=== PATIENT | female | born 1995 | race Caucasian/White ===

== ENCOUNTER 2016-09-20 09:16 | Day surgery (SDC) | payer OTHER ==
[~2016-09-20] VITALS: Ht 167.6 cm; Wt 64.3 kg
[2016-09-20] VITALS (13 sets, daily range): BP systolic 108–126; BP diastolic 63–75; PULSE 66–80; RESP 13–23; Ht 167.6 cm; Wt 64.3 kg
[~2016-09-20 09:16] MED LIST: BACTDS PO; CEFAZOLIN 2 GM/50 ML (PMX) 50 ML IVPB SCH; GLYCOPYRROLATE 0.4 MG INJ ONE; NEOSTIGMINE 3 MG/3 ML SYRINGE ONE; PHEN-537 PO; SOD CHLORIDE 0.9% 1,000 ML IV SCH
[2016-09-20] MEDS ORDERED: DIPHENHYDRAMINE 50 MG INJ IV PRN (10:30)
[2016-09-20] MEDS ORDERED: FENTAnyl 50 MCG/ML VIAL IV PRN ×2 (10:30)
[2016-09-20] MEDS ORDERED: HYDROmorphONE (0.2 MG/ML) 10ML SYG IV PRN ×2 (10:30)
[2016-09-20] MEDS ORDERED: METOCLOPRAMIDE 10 MG INJ IV PRN (10:30)
[2016-09-20] MEDS ORDERED: ONDANSETRON 4 MG INJ IV PRN (10:30)
[2016-09-20] MEDS ORDERED: MEPERIDINE 25 MG INJ IV PRN (10:30)
[2016-09-20] MEDS ORDERED: BUPIVACAINE 0.25% (MPF) 30 ML INJ ONE (11:49)
[2016-09-20] MEDS ORDERED: FENTAnyl 50 MCG/ML VIAL ONE (12:03)
[2016-09-20] MEDS ORDERED: SUCCINYLCHOLINE CHLORIDE 100 MG/5 ML SYG IV ONE (12:17)
[2016-09-20] MEDS ORDERED: PROPOFOL 20 ML ONE (12:17)
[2016-09-20] MEDS ORDERED: ROCURONIUM 50 MG INJ ONE (12:17)
[2016-09-20] MEDS ORDERED: LIDOCAINE 2% (SDV) 5 ML INJ ONE (12:17)
[2016-09-20] MEDS ORDERED: CEFAZOLIN 1 GM INJ ONE (12:17)
--- NOTE | 2016-09-20 12:47 | OPR ---
Date/Time of Note Date/Time of Note DATE: 09/20/16 TIME: 12:44 Operative Report Procedure Date: Sep 20, 2016 Preoperative Diagnosis pilonidal cyst Postoperative Diagnosis same Operation Performed 1. pilonidal cystectomy 13 cm incision and 13 x 4 cm mass 2. localized adjacent tissue transfer with the use of skin flaps with 52 sq cm defect 3. therapeutic injection of subcutaneous marcaine cpt code [id number] Surgeon: Kathy RENDON Specimens pilonidal cyst Indications 21-year-old female with a large pilonidal cyst. She required surgical excision of her pilonidal cyst. Risks alternatives benefits and percent were discussed with patient. Patient expressed understanding and consents to the operation. Procedure Description Patient is taken to the OR and prepped and draped in usual sterile fashion. Surgical timeout was performed IV antibiotics were given. Elliptical incision is made with a 15 blade around the pilonidal cyst. Dissection cautery was carried down all the way to the bone. The pilonidal cyst is resected. Hemostasis is established. Due to the large tissue defect localized adjacent tissue transfer with use of skin flaps was performed. Bilateral flaps were advanced using multilayer closure with interrupted 2-0 Vicryl. Skin is closed with interrupted 2-0 Vicryl and interrupted 2-0 nylon. Therapeutic subcutaneous local anesthesia is injected throughout the whole incision. Dry dressings were applied. Kathy RENDON Sep 20, 2016 12:47
[2016-09-20] MEDS: HYDROmorphONE (0.2 MG/ML) 10ML SYG IV PRN ×3 (12:54→13:07)
[2016-09-20] MEDS ORDERED: HYDROCODONE/APAP (5/325) TAB PO ONE (13:00)
== END 2016-09-20 14:57 | disposition home or self-care (01) ==
LOC: SDS 09:16
PROVIDERS: ATTEND Surgery
DX: L05.91 Pilonidal cyst without abscess (principal)
CPT/HCPCS: 11772; 84703; 88304; J0690; J1170; J2405; J2710; J3010; J7999

== ENCOUNTER 2018-04-18 06:24 | Inpatient (IN) | payer OTHER ==
[2018-04-18] VITALS (22 sets, daily range): BP systolic 105–160; BP diastolic 55–88; PULSE 93–164; RESP 14–24; Ht 167.6 cm; Wt 67.8 kg
[~2018-04-18] VITALS: Ht 167.6 cm; Wt 67.8 kg
[~2018-04-18 06:24] MED LIST changes: -BACTDS PO; +CEFAZOLIN 2 GM/50 ML (PMX) 50 ML IVPB ONE; -CEFAZOLIN 2 GM/50 ML (PMX) 50 ML IVPB SCH; -GLYCOPYRROLATE 0.4 MG INJ ONE; -NEOSTIGMINE 3 MG/3 ML SYRINGE ONE; -PHEN-537 PO
[2018-04-18] MEDS ORDERED: DESFLURANE 15 MIN ONE (07:00)
[2018-04-18] MEDS ORDERED: SUCCINYLCHOLINE CHLORIDE 100 MG/5 ML SYG IV ONE (07:00)
[2018-04-18] MEDS ORDERED: BUPIVACAINE 0.25% (MPF) 30 ML INJ ONE (11:10)
--- NOTE | 2018-04-18 11:21 | PREAC ---
Date/Time of Note Date/Time of Note DATE: 04/18/18 TIME: 11:20 Anesthesia Eval and Record Evaluation Time Pre-Procedure Interview DATE: 04/18/18 TIME: 11:20 Age 23 Sex female NPO: 8 hrs Preoperative diagnosis thyroid noudle CA Planned procedure Thyroidectomy Past Medical History Past Medical History: None Surgery & Anesthesia Issues No known issue Meds Anticoagulation: No Beta Ernesto within 24 hr: No Reason Beta Ernesto not given: Pt. not on B-Ernesto No Active Prescriptions or Reported Meds Current Medications Sodium Chloride 1,000 ml @ 75 mls/hr [id number] IV ; Start 04/18/18 at 06:00; Stop 04/18/18 at 19:19 Meds reviewed: Yes Allergies Coded Allergies: No Known Allergy (Unverified , 09/20/16) Allergies Reviewed: Yes Labs/Studies Labs Reviewed: Reviewed by anesthesiologist Result Diagram: 04/18/18 0630 04/18/18 0630 Laboratory Tests 04/18/18 06:30 test: Negative Studies: ECG (n/a), CXR (n/a) Pre-procedure Exam Last vitals Vital Signs Date Temp Pulse Resp B/P (MAP) Pulse Ox O2 O2 Flow FiO2 Time Delivery Rate 04/18/18 98.2 93 20 105/79 98 Room Air 07:09 (88) Airway: Adequate mouth opening Mallampati: Mallampati I Teeth: Normal Lung: Normal Heart: Normal ASA Physical Status ASA physical status: 1 Emergency: None Planned Anesthetic General/MAC: ETT Planned Pain Management Parenteral pain med Pre-operative Attestations Prior to commencing anesthesia and surgery, the patient was re-evaluated, there was verification of: *The patient's identity *The results of appropriate recent lab work and preoperative vital signs *The above evaluation not changing prior to induction *Anesthetic plan, risk benefits, alternative and complications discussed with patient/family; questions answered; patient/family understands, accepts and wishes to proceed. SUSSY NUNN MD Apr 18, 2018 11:21
[2018-04-18] MEDS ORDERED: hydrALAzine 20 MG INJ IV PRN (11:30)
[2018-04-18] MEDS ORDERED: EPHEDrine SULFATE 50 MG/5 ML SYG IV PRN (11:30)
[2018-04-18] MEDS ORDERED: HYDROmorphONE 1 MG/5 ML IV SYRINGE IV PRN ×2 (11:30)
[2018-04-18] MEDS ORDERED: DIPHENHYDRAMINE 50 MG INJ IV PRN (11:30)
[2018-04-18] MEDS ORDERED: MEPERIDINE 25 MG INJ IV PRN (11:30)
[2018-04-18] MEDS ORDERED: LABETALOL HCL 20MG INJ IV PRN (11:30)
[2018-04-18] MEDS ORDERED: ONDANSETRON 4 MG INJ IV PRN ×2 (11:30→16:30)
[2018-04-18] MEDS ORDERED: METOCLOPRAMIDE 10 MG INJ ONE (11:32)
[2018-04-18] MEDS ORDERED: ROCURONIUM 50 MG INJ ONE (11:32)
[2018-04-18] MEDS ORDERED: MIDAZOLAM 1 MG/ML 2 ML INJ ONE ×2 (11:32→16:36)
[2018-04-18] MEDS ORDERED: CEFAZOLIN 1 GM INJ ONE (11:32)
[2018-04-18] MEDS ORDERED: PROPOFOL 20 ML ONE (11:32)
[2018-04-18] MEDS ORDERED: ONDANSETRON 4 MG INJ ONE (11:32)
[2018-04-18] MEDS ORDERED: NEOSTIGMINE 3 MG/3 ML SYRINGE ONE (11:32)
[2018-04-18] MEDS ORDERED: GLYCOPYRROLATE 0.4 MG INJ ONE (11:32)
[2018-04-18] MEDS ORDERED: DEXAMETHASONE 4 MG/ML 5 ML INJ ONE (12:37)
[2018-04-18] MEDS ORDERED: HYDROmorphONE 2 MG/ML SYG ONE (12:38)
[2018-04-18] MEDS ORDERED: HYDROmorphONE 1 MG/5 ML IV SYRINGE IV ONE (16:16)
[2018-04-18] MEDS ORDERED: MEPERIDINE 25 MG INJ ONE (16:17)
[2018-04-18] MEDS ORDERED: DIPHENHYDRAMINE 50 MG INJ ONE (16:17)
[2018-04-18] MEDS: HYDROmorphONE 1 MG/5 ML IV SYRINGE IV PRN ×5 (16:30→16:57)
[2018-04-18] MEDS ORDERED: CEPASTAT LOZENGE MT PRN (16:30)
[2018-04-18] MEDS ORDERED: HYDROCODONE/APAP (10/325) TAB PO PRN (16:30)
[2018-04-18] MEDS ORDERED: HYDROCODONE/APAP (5/325) TAB PO PRN (16:30)
[2018-04-18] MEDS ORDERED: NACL 0.9% 3 ML SYG IV SCH (16:30)
[2018-04-18] MEDS ORDERED: METOCLOPRAMIDE 10 MG INJ IV PRN (16:30)
[2018-04-18] MEDS ORDERED: HYDROmorphONE 1 MG/ML SYG IV PRN (16:30)
--- NOTE | 2018-04-18 16:44 | SIPON ---
Date/Time of Note Date/Time of Note DATE: 04/18/18 TIME: 16:42 Operative Report Preoperative Diagnosis Left follicular thyroid carcinoma Postoperative Diagnosis same Operation/Procedure Performed total thyroidectomy Surgeon Kizzy Moeller MD FACS anesthesia assistant Markell Gong MD Anesthesia: general Estimated blood loss: 10 - 50 ml's Transfusion Required none Specimen thyroid Grafts/Implants none Complications none KIZZY MOELLER Apr 18, 2018 16:44
[2018-04-18] MEDS ORDERED: MIDAZOLAM 1 MG/ML 2 ML INJ IV ONE (17:00)
[2018-04-18] MEDS ORDERED: MEPERIDINE 25 MG INJ IV ONE (17:00)
[2018-04-18] MEDS: SOD CHLORIDE 0.9% 1,000 ML IV SCH (17:21)
[2018-04-18] MEDS: CALCIUM/VITAMIN D (500/200) TAB PO SCH (20:13)
--- NOTE | 2018-04-18 23:17 | OPR ---
DATE OF OPERATION: 04/18/2018 PREOPERATIVE DIAGNOSIS: Left follicular thyroid cancer. POSTOPERATIVE DIAGNOSIS: Left follicular thyroid cancer. PROCEDURE PERFORMED: Total thyroidectomy. SURGEON: Gabriel Palafox MD, FACS POPULATION HEALTH COACH: Markell Oreilly MD ANESTHESIA: General endotracheal anesthesia. ANESTHESIOLOGIST: Yudith Solis MD ESTIMATED BLOOD LOSS: 20 mL COMPLICATIONS: None. SPECIMEN: Thyroid sent to Pathology. 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 The left thyroid was noted to have a 2 cm nodule , and fine-needle aspiration returned very suspicious for follicular thyroid carcinoma. The right-si ded nodule was 8 mm and on fine-needle aspiration returned benign. Given the very high suspicion of cancer and the accompanying anxiety that the contralateral nodule was providing the patient, after di scussing the case with her and her farmworker fur, we opted the safest and best approach would be a total thyroidectomy. Prior to surgery, risks and benefits including bleeding, infection and voice ch anges were explained, and informed consent was obtained. OPERATIVE DESCRIPTION: The patient was laid supine on the operating room table with a shoulder roll in between her scapulae. A linear incision was made along the direction of the skin creases 2 cm abo ve the sternal notch. Platysmal flaps were created first superiorly and then inferiorly. Self-retai yanet retractors were then placed. The median raphe was identified, and thereafter, a longitudinal in cision was made along the patient's strap muscles which were bluntly dissected out of the way. The t hyroid capsule was thereafter encountered. We first started with the left thyroid gland, and using blunt dissection, were able to dissect the th yroid off of attachments to adjacent tissues to the strap muscles and the patient's trachea. The ner ve stimulator was used for the entirety of the procedure, and all structures were tested before divis ion. The LigaSure handheld device was used to divide all tissue in order to avoid thermal injury and ensure adequate hemostasis. The superior thyroid pedicle was bluntly dissected out, taking care to avoid any injury to the external branch of the superior laryngeal nerve. Thereafter, the LigaSure de vice was used to divide the left superior thyroid vascular pedicle. We then proceeded our dissection circumferentially toward the inferior thyroid pedicle. We stayed subcapsular during the entirety of the dissection in order to avoid any damage to the recurrent laryngeal nerve. The nerve monitor was used throughout the procedure, and although the left recurrent laryngeal nerve was not identified du ring the procedure with the use of the nerve monitor, we made sure not to damage the nerve. The diss ection was then continued and the middle thyroid vein was encountered, and it was ligated with the ai d of the LigaSure device. Afterwards, we proceeded to dissect medially toward the ligament of Mtz which was divided with the aid of the electrocautery, taking care to avoid the area of the recurrent laryngeal nerve. Once this was accomplished, we turned our attention to the right thyroid lobe and this procedure was repeated. The superior pedicle of the right thyroid lobe was likewise transected with the LigaSure d evice, and circumferential dissection was carried out. Thereafter, the inferior thyroid artery on th e right side was identified and coagulated with the LigaSure device and then transected, taking great care to avoid the recurrent laryngeal nerve. During dissection of the right inferior thyroid pedicl e, the nerve monitor did go up, and therefore, we were able to dissect the surrounding tissue and we were able to find the recurrent laryngeal nerve on this side and took great care to avoid it. The re current laryngeal nerve seemed to be running into the thyroid, and in order to avoid it, we left less than 1 gram of thyroid tissue behind in order to avoid any injury to the recurrent laryngeal nerve. We, therefore, proceeded medially toward the isthmus of the thyroid, and thereafter, were able to fu lly transect the thyroid off the trachea. Once this was done, I again identified the recurrent laryn geal nerve on the right side, and with the aid of the nerve stimulator, was able to verify that it wa s unharmed and intact. Once this was done, the thyroid was sent off the surgical field to Pathology. The wound was irrigate d with sterile water and hemostasis was confirmed. Anesthesia provided us the . We then procee ded with the Valsalva maneuver and made sure there was no bleeding. Once this was done, 3-0 Vicryl r unning suture was used to reapproximate the strap muscles at the median raphe. A 3-0 interrupted Boyd ryl was used to reapproximate the platysma. Some Surgicel was left at the area of the trachea to hel p ensure hemostasis. Once the platysma was reapproximated, the skin was closed with running 3-0 [place] cryl subcuticular suture. Wet and dry dressings were applied, and the wound was covered with Dermabo nd solution for dressing. Afterward, I was present as Anesthesia extubated the patient, and followin g extubation, Anesthesia visualized the vocal cords and confirmed that they were in appropriate posit ion. In the recovery suite, the patient was noted to have normal voice. At the end of the procedure , all instrument, sponge and needle counts were confirmed to be correct. There were no complications . The patient was dispositioned to the recovery suite in stable condition. Dictated By: GABRIEL RO/ALEXEY Conf#: [id number] DID#: [id number] CC: MARKELL OREILLY MD;*EndCC*
[2018-04-19] VITALS: BP 103/50; PULSE 99; RESP 20
[2018-04-19] MEDS: SOD CHLORIDE 0.9% 1,000 ML IV SCH ×2 (03:05→12:28)
[2018-04-19] MEDS ORDERED: LEVOTHYROXINE 100 MCG TAB PO SCH (06:00)
[2018-04-19] MEDS: CALCIUM/VITAMIN D (500/200) TAB PO SCH ×2 (08:34→13:02)
[2018-04-19 09:04] VITALS: BP 111/64; PULSE 84; RESP 18
--- NOTE | 2018-04-19 11:34 | PAC ---
Date/Time of Note Date/Time of Note DATE: 04/19/18 TIME: 11:34 Post-Anesthesia Notes Post-Anesthesia Note Last documented vital signs Vital Signs Date Temp Pulse Resp B/P (MAP) Pulse Ox O2 O2 Flow FiO2 Time Delivery Rate 04/19/18 98.2 84 18 111/64 100 Room Air 09:04 (80) 04/19/18 2.0 00:00 Activity: WNL Respiratory function: WNL Cardiovascular function: WNL Mental status: Baseline Pain reasonably controlled: Yes Hydration appropriate: Yes Nausea/Vomiting absent: No SUSSY NUNN MD Apr 19, 2018 11:34
[2018-04-19] MEDS ORDERED: CALCIUM CARBONATE 500 MG CHEW TAB PO PRN (12:30)
--- NOTE | 2018-04-19 12:32 | QN ---
Documentation Comment postop check c/o perioral numbness/tingling and fingertip tingling and chest pressure. no breathing issues. tolerating full liq diet. start tums 2 gm q4 hr prn tingling or numbness continue calcium checks but change to q 8 h will require continue hospitalization for hypocalcemia (symptomatic), pain control, and to advance diet. KIZZY MOELLER Apr 19, 2018 12:32
--- NOTE | 2018-04-19 13:01 | PDOCDIS ---
Discharge Instructions DIAGNOSIS Discharge Diagnosis papillary thyroid cancer CONDITION [id number] Patient Condition: Nesab3t Good HOME CARE INSTRUCTIONS: Anju Diet Instructions: [id number] Regular ACTIVITY: [id number] Activity Restrictions: [id number] No Restrictions FOLLOW UP/APPOINTMENTS Follow-up Plan Dr Liriano (Endocrinology) in two weeks Dr Moeller (Surgery) as needed at office REFERRALS Anju Referring Provider: Rick Rodríguez SCHOOL/WORK RELEASE May return to School/Work on: Apr 21, 2018 May return to School/Work with: No Restrictions School/Work Release Comment: may return to work once off of narcotic medications ([place]) KIZZY MOELLER Apr 19, 2018 13:01
== END 2018-04-19 14:45 | disposition home or self-care (01) | DRG 627 ==
LOC: REC 06:24 → EDSTATUS 09:30 → MS1 18:45
PROVIDERS: ADMIT Surgery Surgical Critical Care; ATTEND Surgery Surgical Critical Care
PROC: 0GTK0ZZ Resection of Thyroid Gland, Open Approach (ICD-10-PCS; principal; 2018-04-18 08:00)
DX: C73 Malignant neoplasm of thyroid gland (principal); F41.9 Anxiety disorder, unspecified; E83.51 Hypocalcemia
CPT/HCPCS: 80053; 82310; 85025; 85610; 85730; 88307; J0690; J1100; J1170; J1200; J2175; J2250; J2405; J2710; J2765; J7030